=== PATIENT | male | born 1970 | race Hispanic/Latino ===

== ENCOUNTER 2018-05-17 09:24 | Emergency (ER) | payer OTHER ==
[2018-05-17 09:31] VITALS: BP 167/99
--- NOTE | 2018-05-17 10:05 | Cat Scan Report ---
CT HEAD WITHOUT CONTRAST INDICATION: Headache. COMPARISON: None similar at this institution. FINDINGS: Noncontrast head CT demonstrates normal, symmetric ventricles and sulci without acute or recent infarct, hemorrhage, mass effect or midline shift. Faint, benign bilateral basal ganglia calcifications. No abnormal extra-axial fluid collections. Posterior fossa structures and basilar cisterns within normal limits. Symmetric eye globes. Slight bilateral maxillary and ethmoid sinus mucosal thickening. Clear remainder imaged paranasal sinuses and mastoid air cells. Mild leftward nasal septal deviation, axial image 4. Intact calvarium. Normal overlying scalp soft tissues. CONCLUSION: No acute intracranial CT abnormality, as described. Thank you for the opportunity to participate in this patient's care.
[2018-05-17] MEDS ORDERED: BENADRYL IV ONE (10:28)
[2018-05-17] MEDS ORDERED: NACL 0.9% 1000 ML 1,000 ML IV ONE (10:28)
[2018-05-17] MEDS ORDERED: SOLU-Medrol IV ONE (10:28)
[2018-05-17] MEDS ORDERED: FIORICET PO ONE (10:28)
[2018-05-17] MEDS ORDERED: REGLAN IV ONE (10:29)
[2018-05-17] MEDS ORDERED: TORADOL IV ONE (10:29)
--- NOTE | 2018-05-17 10:58 | Emergency Department Report ---
ED General Adult HPI - General Chief complaint: Headache Stated complaint: HEADACHE Time Seen by Provider: 05/17/18 10:03 Source: patient Mode of arrival: Ambulatory Limitations: No Limitations - History of Present Illness Initial comments: Patient presents to emergency department to complain of a headache that started about an hour ago. Patient states his headache is located on the right side associated and is throbbing in nature. Patient states the pain has decreased since taking 2 advils at home. Patient states he has not had a headache like t his in quite some time and is not the worse headache of his life. Patient denies any facial droop, slurred speech, confusion. -: Sudden Location: head Radiation: non-radiation Severity scale (0 -10): 8 Quality: other (throbbing) Consistency: constant Improves with: none Worsens with: none Associated Symptoms: denies other symptoms - Related Data Previous Rx's Medication Instructions Recorded Last Taken Type Butalb/Acetamin/Caff 50-325-40 1 tab PO Q6HR PRN #24 tab 05/17/18 Unknown Rx [Fioricet] Allergies Allergy/AdvReac Type Severity Reaction Status Date / Time No Known Allergies Allergy Unverified 05/17/18 09:31 ED Review of Systems ROS: Stated complaint: HEADACHE Other details as noted in HPI Comment: All other systems reviewed and negative Constitutional: denies: chills, fever Eyes: denies: eye pain, eye discharge, vision change ENT: denies: ear pain, throat pain Respiratory: denies: cough, shortness of breath, wheezing Cardiovascular: denies: chest pain, palpitations Endocrine: no symptoms reported Gastrointestinal: denies: abdominal pain, nausea, diarrhea Genitourinary: denies: urgency, dysuria Musculoskeletal: denies: back pain, joint swelling, arthralgia Skin: denies: rash, lesions Neurological: headache. denies: weakness, paresthesias Psychiatric: denies: anxiety, depression Hematological/Lymphatic: denies: easy bleeding, easy bruising ED Past Medical Hx - Past Medical History Previous Medical History?: No - Surgical History Past Surgical History?: No - Social History Smoking Status: Never Smoker Substance Use Type: None - Medications Home Medications: Home Medications Medication Instructions Recorded Confirmed Last Taken Type Butalb/Acetamin/Caff 50-325-40 1 tab PO Q6HR PRN #24 tab 05/17/18 Unknown Rx [Fioricet] ED Physical Exam - General Limitations: No Limitations General appearance: alert, in no apparent distress - Head Head exam: Present: atraumatic, normocephalic - Eye Eye exam: Present: normal appearance, PERRL, EOMI - ENT ENT exam: Present: mucous membranes moist - Neck Neck exam: Present: normal inspection - Respiratory Respiratory exam: Present: normal lung sounds bilaterally. Absent: respiratory distress, wheezes, rales - Cardiovascular Cardiovascular Exam: Present: regular rate, normal rhythm. Absent: systolic murmur, diastolic murmur, rubs, gallop - GI/Abdominal GI/Abdominal exam: Present: soft, normal bowel sounds. Absent: distended, tenderness - Rectal Rectal exam: Present: deferred - Extremities Exam Extremities exam: Present: normal inspection - Back Exam Back exam: Present: normal inspection - Neurological Exam Neurological exam: Present: alert, oriented X3, CN II-XII intact, other (finger- nose, [id number], rapid hand movements intact). Absent: motor sensory deficit - Psychiatric Psychiatric exam: Present: normal affect, normal mood - Skin Skin exam: Present: warm, dry, intact, normal color. Absent: rash ED Course Vital Signs 05/17/18 09:30 Temperature 98.6 F Pulse Rate 74 Respiratory 18 Rate Blood Pressure 167/99 O2 Sat by Pulse 99 Oximetry ED Medical Decision Making - Radiology Data Radiology results: report reviewed - Medical Decision Making Discussed results with patient Patient states his SANTORO is completely resolved upon re-check at 11:30a.m. Critical care attestation.: If time is entered above; I have spent that time in minutes in the direct care of this critically ill patient, excluding procedure time. ED Disposition Clinical Impression: Headache Disposition: DC-01 TO HOME OR SELFCARE Is pt being admited?: No Does the pt Need Aspirin: No Condition: Stable Instructions: Acute Headache (ED) Additional Instructions: Return if worse Referrals: DEBI MONTALVO MD [Primary Care Provider] - 3-5 Days Time of Disposition: 11:43
[2018-05-17] MEDS ORDERED: SOLU-Medrol ONE (11:38)
== END 2018-05-17 12:05 | disposition home or self-care (01) ==
LOC: ED 09:24
DX: R51 Headache (principal)
CPT/HCPCS: 70450; 96374; 96375; 99283; J1200; J1885; J2765; J2930; J7030